=== PATIENT | female | born 1985 | race Caucasian/White ===

== ENCOUNTER 2016-06-07 17:42 | Emergency (ER) | payer OTHER ==
[2016-06-07] MEDS ORDERED: HYDROcod/ACETAM 5/325 MG TABLET PO STA ×2 (19:15→19:21)
[2016-06-07] MEDS ORDERED: HYDROcod/ACETAM 5/325 MG TABLET ONE (19:18)
[2016-06-07] MEDS ORDERED: ONDANSETRON ODT 4 MG TABLET TL STA (19:21)
[2016-06-07] MEDS ORDERED: ONDANSETRON ODT 4 MG TABLET ONE (19:22)
== END 2016-06-07 19:52 | disposition home or self-care (01) ==
DX: N94.6 Dysmenorrhea, unspecified (principal)
CPT/HCPCS: 81003; 81025; 99283; A9270; Q0162

== ENCOUNTER 2016-09-16 17:37 | Emergency (ER) | payer OTHER ==
[2016-09-16] MEDS ORDERED: CYCLOBENZAPRINE 10 MG Prepack 2 PO PRN (17:47)
[2016-09-16] MEDS ORDERED: HYDROcod/ACET 5/325 Prepack 6 PO STA (17:47)
[2016-09-16] MEDS ORDERED: CYCLOBENZAPRINE 10 MG Prepack 2 PO ONE (17:51)
[2016-09-16] MEDS ORDERED: HYDROcod/ACET 5/325 Prepack 6 PO ONE (17:51)
== END 2016-09-16 17:57 | disposition home or self-care (01) ==
DX: S39.012A Strain of muscle, fascia and tendon of lower back, initial encounter (principal); X50.0XXA Overexertion from strenuous movement or load, initial encounter; Y93.B3 Activity, free weights

== ENCOUNTER 2018-06-09 11:35 | Emergency (ER) | payer OTHER ==
[2018-06-09 11:44] VITALS: BP 98/56
--- NOTE | 2018-06-09 13:39 | ED Physician Documentation ---
PD HPI URI - Stated complaint Stated Complaint: THROAT PX - Chief complaint Chief Complaint: Heent - History obtained from History obtained from: Patient - History of Present Illness Timing - onset: Yesterday Timing duration: Days (1) Timing details: Abrupt onset, Still present Associated symptoms: Fever, Sore throat, Swollen nodes. No: Nasal congestion, Rhinorrhea, Dry cough, NVD Contributing factors: Sick contact (strep throat) Similar symptoms before: Has not had sx before Recently seen: Not recently seen Review of Systems Constitutional: reports: Fever, Myalgias Nose: denies: Rhinorrhea / runny nose, Congestion Throat: reports: Sore throat Respiratory: denies: Cough Neurologic: reports: Headache. denies: Generalized weakness, Near syncope PD PAST MEDICAL HISTORY - Past Medical History Past Medical History: No - Past Surgical History Past Surgical History: No - Present Medications Home Medications: Ambulatory Orders Medication Instructions Recorded Confirmed Cephalexin [Keflex] 500 mg PO TID #21 capsule 06/09/18 Dexamethasone [Decadron] 4 mg PO DAILY #5 tablet 06/09/18 Naproxen 500 mg PO BID #20 tablet 06/09/18 - Allergies Allergies/Adverse Reactions: Allergies Allergy/AdvReac Type Severity Reaction Status Date / Time codeine Allergy Nausea Verified 06/09/18 11:44 - Social History Does the pt smoke?: No Smoking Status: Never smoker Does the pt drink ETOH?: Yes Does the pt have substance abuse?: No - Immunizations Immunizations are current?: Yes PD ED PE NORMAL - Vitals Vital signs reviewed: Yes - General General: Alert and oriented X 3, No acute distress, Well developed/nourished - HEENT HEENT: Ears normal, Moist mucous membranes. No: Pharynx benign (redness with swelling left tonsil and around it without abscess nor tonsillar deviation. Left anterior adenopathy. ) - Neck Neck: Supple, no meningeal sign - Cardiac Cardiac: RRR, No murmur - Respiratory Respiratory: Clear bilaterally - Abdomen Abdomen: Soft, Non tender, No organomegaly - Derm Derm: Normal color, Warm and dry, No rash Results - Vitals Vitals: Vital Signs - 24 hr 06/09/18 11:41 Temperature 36.6 C Heart Rate 77 Respiratory 16 Rate Blood Pressure 98/56 L O2 Saturation 99 Oxygen O2 Source Room air - Labs Labs: Microbiology 06/09/18 11:46 Group A Strep Throat Culture - Final Throat MIXED OROPHARYNGEAL COLBY PRESENT. NO BETA STREP PRESENT IN CULTURE. Laboratory Tests 06/09/18 11:46 Group A Strep Rapid Negative PD MEDICAL DECISION MAKING - ED course Complexity details: considered differential (clinically appearing peritonsillar early infection and has 4/4 Centor. ), d/w patient Departure - Departure Disposition: 01 Home, Self Care Clinical Impression: Peritonsillitis Condition: Stable Record reviewed to determine appropriate education?: Yes Instructions: ED Strep Pharyngitis Poss Follow-Up: Raji Kendall ARNP [Primary Care Provider] - Prescriptions: Cephalexin [Keflex] 500 mg PO TID #21 capsule Dexamethasone [Decadron] 4 mg PO DAILY #5 tablet Naproxen 500 mg PO BID #20 tablet Comments: This looks suspicious for bacterial infection even though the rapid test is negative. We will treated as such for now pending the culture result. Drink lots of fluids. Off work today and resume work tomorrow once starting treatment. Cephalexin 3 times a day for a week. Decadron steroid anti- inflammatory daily for 5 more days. Add Tylenol or naproxen as needed for pains. Recheck if not improving over the next few days. If the culture result in a few days is negative as well, then you could stop the antibiotics but it looks likely bacterial at this point. Forms: Activity restrictions Discharge Date/Time: 06/09/18 14:21
[2018-06-09] MEDS ORDERED: ACETAMINOPHEN 325 MG TABLET PO STA (14:00)
[2018-06-09] MEDS ORDERED: cephALEXin 250 MG CAPSULE PO STA (14:00)
[2018-06-09] MEDS ORDERED: DEXAMETHASONE 10 MG/ML VIAL PO STA (14:00)
== END 2018-06-09 14:21 | disposition home or self-care (01) ==
LOC: ED 11:35
DX: J36 Peritonsillar abscess (principal)
CPT/HCPCS: 87070; 87430; 99283; A9270

== ENCOUNTER 2018-12-09 09:05 | Emergency (ER) | payer OTHER ==
[2018-12-09 09:19] VITALS: BP 98/50
--- NOTE | 2018-12-09 09:20 | ED Physician Documentation ---
PD HPI LOWER EXT INJURY - Stated complaint Stated Complaint: FOOT INJURY - Chief complaint Chief Complaint: Trauma Ext - History obtained from History obtained from: Patient - History of Present Illness PD HPI LOW EXT INJURY LOCATION: Right, Toe Type of injury: Blunt / blow (accidentally dropped heavy object on great toe.) Where injury occurred: Work Timing - onset: Today Timing - details: Abrupt onset Associated symptoms: Swelling. No: Weakness, Numbness Review of Systems Skin: denies: Abrasion (s), Laceration (s) PD PAST MEDICAL HISTORY - Past Medical History Musculoskeletal: None - Past Surgical History Past Surgical History: No - Present Medications Home Medications: Ambulatory Orders Medication Instructions Recorded Confirmed Naproxen 500 mg PO BID #20 tablet 06/09/18 - Allergies Allergies/Adverse Reactions: Allergies Allergy/AdvReac Type Severity Reaction Status Date / Time codeine AdvReac Nausea Verified 12/09/18 09:19 - Social History Does the pt smoke?: No Smoking Status: Never smoker Does the pt drink ETOH?: Yes Does the pt have substance abuse?: No - Immunizations Immunizations are current?: Yes PD ED PE NORMAL - Vitals Vital signs reviewed: Yes - General General: Alert and oriented X 3, No acute distress, Well developed/nourished - Derm Derm: Normal color, Warm and dry - Extremities Extremities: Other (The right great toe is tender at the proximal phalanx and around the IP joint. There is no obvious deformity. The rest of the foot is not tender. There is no blood under the nail. She has good sensation color and capillary refill at the tip.) - Neuro Neuro: No motor deficit, No sensory deficit Results - Vitals Vitals: Vital Signs - 24 hr 12/09/18 09:16 Temperature 36.5 C Heart Rate 62 Respiratory 15 Rate Blood Pressure 98/50 L O2 Saturation 99 Oxygen O2 Source Room air - Rads (name of study) toes right Radiology: Prelim report reviewed, EMP read contemporaneously, See rad report PD MEDICAL DECISION MAKING - ED course Complexity details: reviewed results (small fracture at IP joint. ), considered differential, d/w patient Departure - Departure Disposition: 01 Home, Self Care Clinical Impression: Fractured great toe Qualifiers: Encounter type: initial encounter Fracture type: closed Phalanx: distal Fracture alignment: nondisplaced Laterality: right Qualified Code(s): S92.424A - Nondisplaced fracture of distal phalanx of right great toe, initial encounter for closed fracture Condition: Stable Record reviewed to determine appropriate education?: Yes Instructions: ED Fx Toe Closed Follow-Up: Raji Kendall ARNP [Primary Care Provider] - Comments: There does look to be a small fracture at the corner of the toe bone. It is not in the main shaft nor affecting the joint surface. It can be treated with just less activity of no running jumping or prolonged walking for a week or 2. Ibuprofen 600 mg 2-3 times a day and add Tylenol if needed for pain. Recheck if not improving well over the next week and completely better by 2 to 3 weeks.
[2018-12-09] MEDS ORDERED: IBUPROFEN 600 MG TABLET PO STA (09:33)
[2018-12-09] MEDS ORDERED: ACETAMINOPHEN 325 MG TABLET PO STA (09:33)
--- NOTE | 2018-12-09 10:02 | XRAY Report ---
Reason: dropped heavy object on right great toe Procedure Date: 12/09/2018 Accession Number: [id number] / [id number] Procedure: XR - Toe(s) RT CPT Code: FULL RESULT: EXAM: RIGHT TOE RADIOGRAPHY EXAM DATE: 12/09/2018 09:55 AM. CLINICAL HISTORY: Dropped heavy object on right great toe. COMPARISON: None. TECHNIQUE: 3 views. FINDINGS: Bones: There is minimal cortical disruption along the articular surface of the medial aspect of the first distal phalanx, potential fracture. Joints: Normal. No subluxations. Soft Tissues: Soft tissue swelling is seen overlying the suspected site of fracture. IMPRESSION: Suspect fracture along the medial aspect of the great toe at the articular surface, confirm by correlation for point tenderness. [facility]
== END 2018-12-09 10:26 | disposition home or self-care (01) ==
LOC: ED 09:05
DX: S92.424A Nondisplaced fracture of distal phalanx of right great toe, initial encounter for closed fracture (principal); W20.8XXA Other cause of strike by thrown, projected or falling object, initial encounter; Y92.89 Other specified places as the place of occurrence of the external cause; Y99.0 Civilian activity done for income or pay
CPT/HCPCS: 73660; 99282; 99283; A9270